=== PATIENT | female | born 1935 | race Caucasian/White ===

== ENCOUNTER 2016-11-29 08:21 | Emergency (ER) | payer MEDICARE, OTHER, BC ==
--- NOTE | ~2016-11-29 | CR63 ---
[facility]. [facility] A Service of [facility] & [facility] RADIOLOGY TEXT RESULTS PATIENT: WOLFGANG ZENG LOCATION: SED : 35 UNIT #: [id number] AGE: [address]: Shahram Romo MD SEX: F ORDER DR: [id number] [place] [id number] E MR#: [id number] Acc #: [id number] NAME: WOLFGANG ZENG : 1935 SEX: F STUDY DATE/TIME: 11/29/2016 8:58 UNIT: SED ROOM: STUDY DESCRIPTION: CR Chest 2 View Attending Physician: Shahram Romo M.D. Ordering Physician: Shahram Romo M.D. Primary Care Physician: Garcia Roy D.O. MEDICAL IMAGING REPORT This report is preliminary unless electronic signature is present. EXAM Chest PA and lateral 11/29/2016 COMPARISON 09/04/2009 HISTORY Cough for 1 week. FINDINGS PA and lateral views are obtained and compared directly to the patient's prior studies of September 04, 2009. Heart size in the patient is normal. Vascular pattern of the chest is normal. There is some interstitial fibrotic changes in both lungs. No acute infiltrates are identified. CONCLUSION Fibrotic changes in both lungs. No acute process identified. Dictated by... Lazaro Merritt M.D. THIS IS AN ELECTRONICALLY VERIFIED REPORT Lazaro Merritt M.D. at 11/29/2016 4:45 PM Toby TD: 11/29/2016 12:35 JOB #: [id number] MEDICAL IMAGING REPORT
[~2016-11-29 08:21] MED LIST: ASPIRINEC PO; FISH OIL 1,2001 EACH PO; HCTZ PO; HYDROXYZINE HCL25 M1 PO; LEVOTHROID50 MCG PO; LEVOTHYROXINE50 MC1 PO; LIPITOR PO; LIPITOR40 MG PO; LOPRESSOR PO; LORTAB 10/500 T1 TAB PO; MULTI-VITAMIN1 TAB PO; OCUVITE TABLET1 TA1 PO; OMEPRAZOLE PO; PAXIL PO; TUMS500 MG PO; VIT C; VITAMIN D3; WELCHOL625 MG PO; ZOCOR PO
[2016-11-29 08:56] LABS: INFLUENZA A NEG (NEG); INFLUENZA B NEG (NEG)
[2016-11-29] MEDS ORDERED: HYDROMET SYRUP480 ML PO (09:52)
[2016-11-29] MEDS ORDERED: DELTASONE20 MG PO (09:52)
[2016-11-29] MEDS ORDERED: ZITHROMAX (09:54)
[2016-11-29] MEDS ORDERED: ALBUTEROL17 GM INH (09:54)
== END 2016-11-29 10:01 | disposition home or self-care (01) ==
LOC: SED 08:21
PROVIDERS: Emergency Medicine
DX: J20.9 Acute bronchitis, unspecified (principal); J01.20 Acute ethmoidal sinusitis, unspecified; J01.00 Acute maxillary sinusitis, unspecified; I10 Essential (primary) hypertension; J44.9 Chronic obstructive pulmonary disease, unspecified; K21.9 Gastro-esophageal reflux disease without esophagitis; Z87.891 Personal history of nicotine dependence; Z88.5 Allergy status to narcotic agent; Z79.899 Other long term (current) drug therapy
CPT/HCPCS: 71020; 87804; 94640; 99283